=== PATIENT | male | born 1970 | race Caucasian/White ===

== ENCOUNTER 2024-06-10 00:23 | Emergency (ER) | payer BC, SELFPAY ==
[2024-06-10 00:29] VITALS: BP 185/97
[2024-06-10 00:53] VITALS: BMI 38.1
[2024-06-10 01:03] VITALS: BP 145/68
[2024-06-10 01:10] LABS: % Basophils 0.7 % (0-2); % Eosinophils 1.9 % (0-6); % Immature Granulocytes 0.2 % (0-0.5); % Lymphocytes 27.1 % (20.5-51.1); % Monocytes 8.3 % (1.7-9.3); % Neutrophils 61.8 % (42.2-75.2); Absolute Basophils 0.1 10^3/uL (0-0.2); Absolute Eosinophils 0.2 10^3/uL (0-0.7); Absolute Lymphocytes 2.5 10^3/uL (1.2-3.4); Absolute Monocytes 0.8 10^3/uL (0.1-0.6); Absolute Neutrophils 5.7 10^3/uL (1.4-6.5); Hematocrit 40.1 % (39.0-52.0); Hemoglobin 14.5 g/dL (13.0-18.0); Mean Corp Hgb Conc. 36.2 g/dL (33.0-37.0); Mean Corpuscular Volume 85.9 fL (80.0-94.0); Mean Platelet Volume 9.7 fL (7.4-10.4); Nucleated Red Blood Cells % 0 % (-); Platelet Count 169 10^3/uL (130-400); Red Blood Cell Count 4.67 10^6/uL (4.70-6.10); Red Cell Dist. Width 12.1 % (11.5-14.5); White Blood Cell Count 9.2 10^3/uL (4.8-10.8)
--- NOTE | 2024-06-10 01:29 | ED.GENMED ---
History of Present Illness
General
Chief Complaint: Cardiac Symptoms
Source: patient and spouse
Time Seen by Provider: 06/10/24 01:15
History of Present Illness
History of Present Illness:
53-year-old male who presents emergency department with complaints of palpitations that started around 10 PM tonight. He describes it as feeling like his heart is 'off' by a beat and he feels a 'sinking feeling in my gut' when it happens. It
happens many times per minute since 10 PM which brought his visit here. He denies associated chest pain or pressure, dyspnea, fever, chills, nausea, vomiting, back pain, headache, dizziness, swelling, or other complaints. Patient notes that his
Synthroid dose was increased a few months ago. He also notes that he had 2 cigars tonight. He reports drinking a lot of coffee.
Past History
Past History
ED Past Medical History: HTN, Hypercholesterolemia and Hypothyroidism
ED Past Surgical History: None
Social History
Tobacco: Smoker (He smokes cigars occasionally)
Alcohol: Occasional
Drug: None
Personal:
Living: with family
Family History
Family History: Negative Diabetes, Hypertension, Early CAD, CAD or Sudden
Phy Exam
Physical Exam
Physical Exam:
GENERAL: Alert , in no apparent distress
EYE: pupils equal and reactive
NECK: Supple, no significant adenopathy.
ENT: o/p clr, mmm.
CARDIAC: Regular rate and rhythm with occasional PVC noted.
LUNGS: Clear breath sounds bilaterally, no acute respiratory distress, no wheezes/rales/rhonchi
ABDOMEN: Soft, without focal tenderness, no r/g, no cvat
NEUROLOGICAL: Alert and oriented, no focal neuro deficits
SKIN: Warm and dry, skin intact.
MUSCULOSKELETAL: No edema, well perfused.
PSYCH: Normal and appropriate interaction.
Course
Orders/Labs/Results
Orders:
Orders
06/10/24 00:32
ECG [Electrocardiogram (*1)] Urgent
Reason for Study: Palpitations
EKG- Treatment ONCE
06/10/24 01:02
Complete Blood Count/With Diff Urgent
Comprehensive Metabolic Panel Urgent
TSH Urgent
Comment: ADD ON
Troponin I Urgent
06/10/24 01:28
Add On- LAB Urgent
Tests Added?: tsh
Abnormal Lab Results
06/10/24
01:02
RBC 4.67 L 10^6/uL
(4.70-6.10)
Absolute Monos (auto) 0.8 H 10^3/uL
(0.1-0.6)
BUN 24 H mg/dl
(9-20)
Glucose 133 H mg/dl
(70-99)
06/10/24 01:02
06/10/24 01:02
Vital Signs
Initial and Last Documented VS:
Initial Vital Signs
Temp Pulse Resp BP Pulse Ox
97.8 F 104 28 185/97 100
06/10/24 00:29 06/10/24 00:29 06/10/24 00:29 06/10/24 00:29 06/10/24 00:29
Last Documented Vital Signs
Temp Pulse Resp BP Pulse Ox
97.8 F 84 11 143/80 95
06/10/24 00:29 06/10/24 02:30 06/10/24 01:06 06/10/24 02:00 06/10/24 02:30
*Critical Care Note
Total Time (30-74mins, 75-104mins- exclusive of procedures): Not Applicable
Update Note
Update Note:
Patient presents to the Emergency Department with ___palpitations
Number and Complexity of Problems Addressed at the Encounter
� Chronic conditions affecting care:
� Acute Exacerbation and/or Progression of Chronic Illness:
� Differential Diagnosis includes: But not limited to PVCs, A-fib, SVT, hyperthyroidism, etc. etc.
Amount and/or Complexity of Data to be Reviewed and Analyzed
� I performed an independent evaluation of and my interpretation is:
EKG: Read by me, sinus tachycardia with occasional PVCs noted, no acute ischemia
CT:
Xrays:
Laboratory Studies:
Other:
� Review of other/old records reveals:
� Clinical information was obtained by an independent historian: who is at bedside
� Prescriptions/Medications Considered but not given:
� Further testing considered but not performed:
Risk of Complications and/or Morbidity or Mortality of Patient Management
� Social determinants of health affecting care:
� Discussion with other providers (PCP, Hospitalists, Consultants, etc):
� Escalation of care including admission/observation vs risk of discharge considered: On monitor, it is clear that pt is having PVC's (a few times/minute at times) that are assoc with his sxs...when pvc noted on monitor, pt
states 'That's it, I felt that'. No sxs ot suggest ischemia, such as cp,neck/jaw pain, sob, etc etc.
Pt offered option of meds to control sxs, he declines at this time, feels relieve w/u otherwise unremarkable, will f/u with pcp and, if necessary, cards. D/w pt impot of f/ua nd reasons to rted.
ED Attending Note
-
Portions of this chart may have been created with voice recognition software.� Occasional wrong word or��sound alike� substitutions may have occurred due to the inherent limitations of voice recognition software.
Discharge Plan
Departure
Patient Disposition: Home (Routine Discharge)
Patient with high blood pressure during this ER visit?: Yes
Condition: Good
Discharge Problem:
Premature ventricular contraction
Instructions: Ventricular premature beats, BLOOD PRESSURE
Prescriptions:
No Action
levothyroxine 200 mcg Tablet
250 mcg PO DAILY
lisinopril 20 mg Tablet
20 mg PO DAILY
Referrals:
Betty Strange MD [Active] - As needed
UNKNOWN - PT DOES,NOT KNOW [Unknown Provider] -
Activity Restrictions/Additional Instructions:
PLEASE AVOID STIMULANTS SUCH ALCOHOL, CAFFEINE, NICOTINE, ETC. IF YOU DEVELOP CHEST PAIN/PRESSURE/DISCOMFORT, TROUBLE BREATHING, FEVER, VOMITING, WORSENING/CONTINUED PALPITATIONS OR OTHER WORRISOME SIGNS, GO TO THE ER IMMEDIATELY!
Interventions
Interventions:
*Risk Screen - Suicide Last Done: 06/10/24 00:29
*General Assessment Last Done: 06/10/24 02:44
*Neglect/Abuse Screening Last Done: 06/10/24 00:29
ED- Fall Risk Assessment Last Done: 06/10/24 01:07
*ED COVID-19 Vaccine History Last Done: 06/10/24 01:46
*Nursing Disposition Last Done: 06/10/24 02:44
ED- Pulmonary Assessment Last Done: 06/10/24 01:07
ED- Cardiac Assessment Last Done: 06/10/24 01:07
Discharge Date and Time
Discharge Date/Time: 06/10/24 02:47
Print Language: KYRGYZ
[2024-06-10 01:33] LABS: ALT (SGPT) 25 U/L (0-50); AST (SGOT) 22 U/L (17-59); Albumin 4.4 g/dl (3.5-5.0); Alkaline Phosphatase 61 U/L (38-126); Blood Urea Nitrogen 24 mg/dl (9-20); Calcium 9.6 mg/dl (8.4-10.2); Carbon Dioxide 25 mmol/L (22-30); Chloride 106 mmol/L (98-107); Estimated Creatinine Clearance 123 ml/min; Glucose 133 mg/dl (70-99); Potassium 3.9 mmol/L (3.5-5.1); Sodium 142 mmol/L (135-145); Total Bilirubin 0.3 mg/dl (0.2-1.3); Total Protein 6.9 g/dl (6.3-8.2); eGFR > 60.00
[2024-06-10 01:34] LABS: Troponin I < 0.012 ng/ml
[2024-06-10 02:00] VITALS: BP 143/80
[2024-06-10 02:29] LABS: TSH 2.38 uIU/ml (0.47-4.68)
== END 2024-06-10 02:47 | disposition home or self-care (01) ==
LOC: EMR 00:23
PROVIDERS: Emergency Medicine; EMERGENCY PHYSICIAN Emergency Medicine; FAMILY PHYSICIAN Family Medicine
DX: I49.3 Ventricular premature depolarization (principal); E03.9 Hypothyroidism, unspecified; E78.00 Pure hypercholesterolemia, unspecified; I10 Essential (primary) hypertension; Z72.0 Tobacco use; Z79.899 Other long term (current) drug therapy
CPT/HCPCS: 99284; 80053; 84443; 84484; 85025; 93005

== ENCOUNTER → 2024-07-10 06:14 | Day surgery (SDC) | payer BC, SELFPAY | LOC: GI 06:14 | PROVIDERS: ATTENDING PHYSICIAN Surgery; FAMILY PHYSICIAN Family Medicine | DX: Z12.11 Encounter for screening for malignant neoplasm of colon (principal); K57.30 Diverticulosis of large intestine without perforation or abscess without bleeding; Z86.010 Personal history of colon polyps | CPT/HCPCS: G0105 ==

== ENCOUNTER → 2024-07-19 13:37 | Outpatient (REF) | payer BC, SELFPAY ==
--- NOTE | 2024-07-19 14:40 | CARDSERVLU ---
Echocardiogram with Lumason completed after protocol screening completed. Allergies verified.
Patent IV site: Left AC
IV site flushed with 0.9% NaCl pre and post administration.
Diluted bolus method utilized to enhance visualization of ventricular blair.
Total volume given: 2.5_ mL
Patient tolerated all procedures well without complications.
# 22 katie placed left AC. Lumason given. INT d/c'd. pressure held. no bleeding noted.
== END ==
LOC: RCS 13:37
PROVIDERS: ATTENDING PHYSICIAN Internal Medicine Cardiovascular Disease; FAMILY PHYSICIAN Family Medicine
DX: I49.3 Ventricular premature depolarization (principal)
CPT/HCPCS: 93306; Q9950

== ENCOUNTER → 2025-08-27 11:20 | Outpatient (REF) | payer SELFPAY | LOC: HWRAD 11:20 | PROVIDERS: ATTENDING PHYSICIAN Internal Medicine Cardiovascular Disease; FAMILY PHYSICIAN Family Medicine | DX: E78.2 Mixed hyperlipidemia (principal) | CPT/HCPCS: 75571 ==

== ENCOUNTER → 2025-09-17 08:47 | Outpatient (REF) | payer BC, SELFPAY | LOC: RCS 08:47 | PROVIDERS: ATTENDING PHYSICIAN Internal Medicine Cardiovascular Disease; FAMILY PHYSICIAN Family Medicine | DX: I10 Essential (primary) hypertension (principal); E78.2 Mixed hyperlipidemia; R93.1 Abnormal findings on diagnostic imaging of heart and coronary circulation | CPT/HCPCS: 93017; 93350 ==